=== PATIENT | male | born 2000 | race Caucasian/White ===

== ENCOUNTER 2022-05-24 06:24 | Emergency (ER) | payer OTHER, BC ==
[~2022-05-24] VITALS: Ht 182.9 cm; Wt 79.4 kg
[2022-05-24] MEDS ORDERED: AZIT500T66 PO (07:41)
[2022-05-24] MEDS ORDERED: BENZ100C19 PO (07:41)
[2022-05-24 07:45] VITALS: BP 107/71
== END 2022-05-24 08:04 | disposition home or self-care (01) ==
LOC: ER 06:24
DX: J20.9 Acute bronchitis, unspecified (principal); J02.9 Acute pharyngitis, unspecified
CPT/HCPCS: 71046

== ENCOUNTER 2023-01-03 22:03 | Emergency (ER) | payer BC, OTHER ==
[~2023-01-03] VITALS: Ht 182.9 cm; Wt 81.8 kg
[~2023-01-03 22:03] MED LIST: AZIT500T66 PO; BENZ100C19 PO
[2023-01-04] MEDS ORDERED: IBUPROFEN 800 MG TAB PO ONE (03:15)
[2023-01-04 03:32] VITALS: BP 121/64
== END 2023-01-04 03:34 | disposition home or self-care (01) ==
LOC: ER 22:07
DX: M79.10 Myalgia, unspecified site (principal); R91.1 Solitary pulmonary nodule; F17.210 Nicotine dependence, cigarettes, uncomplicated; V48.6XXA Car passenger injured in noncollision transport accident in traffic accident, initial encounter; Y93.89 Activity, other specified; Y92.89 Other specified places as the place of occurrence of the external cause; Y99.8 Other external cause status
CPT/HCPCS: 70450; 71250; 72125; 74176

== ENCOUNTER 2023-03-08 09:47 | Inpatient (IN) | payer BC, OTHER ==
[~2023-03-08] VITALS: Ht 182.9 cm; Wt 78.9 kg
[2023-03-08 10:25] LABS: Urine Bacteria NONE SEEN /hpf (None Seen); Urine Blood Negative /uL (Negative); Urine Specific Gravity 1.016 (1.001-1.035); Urine WBC <1 /hpf (0 - 3)
[2023-03-08] MEDS ORDERED: SODIUM CHLORIDE 0.9% 1,000 ML IVB ONE (10:30)
[2023-03-08] MEDS ORDERED: MORPHINE SULFATE 4 MG/ML SYR/VIAL IV ONE (10:30)
[2023-03-08] MEDS ORDERED: ONDANSETRON HCL 4 MG/2 ML VIAL IV ONE (10:30)
[2023-03-08 10:44] LABS: Basophils # (auto) 0 10 ^3/uL (0-0.2); Basophils % (auto) 0.6 % (0.0-2.0); Eosinophils # (auto) 0.1 10 ^3/uL (0-0.8); Eosinophils % (auto) 1.7 % (0.0-7.0); Hematocrit 46.8 % (41.0-53.0); Hemoglobin 15.8 g/dL (13.5-17.5); Lymphocytes # (auto) 1.6 10 ^3/uL (0.4-5.4); Lymphocytes % (auto) 25.3 % (10.0-50.0); Mean Corpuscular Hemoglobin 32.3 pg (28.0-32.0); Mean Corpuscular Hgb Conc. 33.9 g/dL (32.0-36.0); Mean Corpuscular Volume 95.5 fL (80.0-100.0); Monocytes # (auto) 0.6 10 ^3/uL (0-1.3); Monocytes % (auto) 9.1 % (0.0-12.0); Neutrophils # (auto) 4.1 10 ^3/uL (1.6-8.6); Neutrophils % (auto) 63.3 % (37.0-80.0); Nucleated Red Blood Cells % 0.1 %; Red Cell Distribution Width 13.4 % (11.8-14.3); White Blood Cell 6.5 10^3/uL (4.4-10.8)
[2023-03-08 10:57] LABS: Calcium 8.9 mg/dL (8.5-10.1); Potassium 4.2 mmol/L (3.5-5.1)
[2023-03-08 11:00] VITALS: PULSE 72; RESP 15; O2SAT 98
[2023-03-08 11:03] LABS: BUN/Creatinine Ratio 9.1 (10.0-20.0); Bilirubin, Total 0.7 mg/dL (0.2-1.0); Total Protein 7.6 g/dL (6.4-8.2)
[2023-03-08] MEDS ORDERED: IOHEXOL 300 MG/ML 100ML BOTTLE IJ ONE (11:23)
[2023-03-08] MEDS ORDERED: PIPERACILLIN-TAZOB 3.375GM 100 ML IV ONE (12:15)
[2023-03-08] MEDS ORDERED: ONDANSETRON HCL 4 MG/2 ML VIAL IV PRN (12:45)
[2023-03-08] MEDS ORDERED: MORPHINE SULFATE INJ 2 MG/ml SYRG IV PRN (12:45)
[2023-03-08] MEDS ORDERED: SODIUM CHLORIDE 0.9% 1,000 ML IV SCH (12:45)
[2023-03-08] MEDS ORDERED: DOCUSATE SOD 100 MG CAP PO PRN (12:45)
[2023-03-08 14:44] LABS: INR 1.01 (0.9-1.15); Partial Thromboplastin Time 27.8 SEC (24.5-34.5)
[2023-03-08 15:08] VITALS: PULSE 76; RESP 16; O2SAT 99
[2023-03-08 17:00] VITALS: BP 107/53; PULSE 64; RESP 20; TEMP 98.1; O2SAT 98
[2023-03-08] MEDS ORDERED: HYDROmorphone HCL 2 MG/ML VL/or syr IV PRN (18:15)
[2023-03-08] MEDS ORDERED: ACETAMINOPHEN 325 MG TAB PO PRN ×2 (19:15→19:30)
[2023-03-08] MEDS ORDERED: D5W/SOD CHLO 0.9% 1,000 ML IV SCH (19:15)
[2023-03-08] MEDS: PIPERACILLIN-TAZOB 3.375GM 100 ML IV SCH (20:07)
[2023-03-08 22:00] VITALS: BP 104/46; PULSE 60; RESP 20; TEMP 98.7; O2SAT 96
[2023-03-09] VITALS (8 sets, daily range): BP systolic 102–118; BP diastolic 57–78; PULSE 57–92; RESP 15–20; TEMP 97.3–98.1; O2SAT 94–98
[2023-03-09] MEDS: PIPERACILLIN-TAZOB 3.375GM 100 ML IV SCH ×5 (01:48→23:03)
[2023-03-09 06:28] LABS: Basophils # (auto) 0.1 10 ^3/uL (0-0.2); Basophils % (auto) 1.1 % (0.0-2.0); Eosinophils # (auto) 0.1 10 ^3/uL (0-0.8); Eosinophils % (auto) 2.1 % (0.0-7.0); Hematocrit 44.5 % (41.0-53.0); Mean Corpuscular Hgb Conc. 33.6 g/dL (32.0-36.0); Mean Corpuscular Volume 95.3 fL (80.0-100.0); Monocytes # (auto) 0.4 10 ^3/uL (0-1.3); Neutrophils # (auto) 2.9 10 ^3/uL (1.6-8.6); Neutrophils % (auto) 52.8 % (37.0-80.0); Nucleated Red Blood Cells % 0.1 %; Red Blood Cells 4.67 10^6/uL (4.5-5.90); White Blood Cell 5.6 10^3/uL (4.4-10.8)
[2023-03-09 06:49] LABS: Albumin 3.3 g/dL (3.4-5.0); Calcium 8.7 mg/dL (8.5-10.1); Potassium 4.1 mmol/L (3.5-5.1)
[2023-03-09 06:52] LABS: BUN/Creatinine Ratio 7.6 (10.0-20.0); Bilirubin, Total 0.6 mg/dL (0.2-1.0); Total Protein 6.2 g/dL (6.4-8.2)
[2023-03-09] MEDS ORDERED: LIDOCAINE 1% HCL (LOCAL ANESTH.) INJ 20ML MDV ONE ×2 (09:33→09:57)
[2023-03-09] MEDS ORDERED: BUPIVACAINE W/ EPINEPH 0.5% INJ 50ML MDV IJ ONE ×2 (09:33→09:58)
[2023-03-09] MEDS ORDERED: BUPIVACAINE 0.25% INJ 50ML VIAL ONE (09:39)
[2023-03-09] MEDS ORDERED: HYDROmorphone HCL 2 MG/ML VL/or syr ONE (09:48)
[2023-03-09] MEDS ORDERED: MIDAZOLAM HCL 2MG/2ML 2ml VIAL (1mg/ml) ONE (09:48)
[2023-03-09] MEDS ORDERED: fentaNYL CITRATE 100 MCG/2 ML VL ONE (09:48)
[2023-03-09] MEDS ORDERED: GLYCOPYRROLATE 0.2 MG/ML 1ML VIAL ONE (09:49)
[2023-03-09] MEDS ORDERED: PROPOFOL 10 MG/ML 20 ML IV ONE (09:49)
[2023-03-09] MEDS ORDERED: DexAMETHasone SOD PHOS 10MG/1ML VIAL INJ ONE (09:49)
[2023-03-09] MEDS ORDERED: ePHEDrine SULFATE 50 MG/ML AMP ONE (09:49)
[2023-03-09] MEDS ORDERED: KETOROLAC TROMETH 30 MG/ML 1ML VIAL ONE (09:49)
[2023-03-09] MEDS ORDERED: LIDOCAINE 2% (LOCAL ANESTH.) PF 5ml SDV ONE (09:49)
[2023-03-09] MEDS ORDERED: ONDANSETRON HCL 4 MG/2 ML VIAL ONE (09:49)
[2023-03-09] MEDS ORDERED: PANTOPRAZOLE 40 MG/10 ML VIAL INJ IV SCH (10:00)
[2023-03-09] MEDS ORDERED: SUGAMMADEX 200mg/2ml Vial (100MG/ML) IV ONE (10:44)
[2023-03-09] MEDS: D5W/SOD CHL 0.45%/KCL 20MEQ 1,000 ML IV SCH ×2 (10:45→19:05)
[2023-03-09] MEDS ORDERED: ONDANSETRON HCL 4 MG/2 ML VIAL IV PRN (11:15)
[2023-03-09] MEDS ORDERED: HYDROmorphone HCL 2 MG/ML VL/or syr IV PRN (11:15)
[2023-03-09] MEDS: metroNIDAZOLE 500MG/100ML 100 ML IV SCH ×3 (13:32→23:03)
[2023-03-09] MEDS: ONDANSETRON HCL 4 MG/2 ML VIAL IV PRN (16:48)
[2023-03-09] MEDS: HYDROmorphone HCL 2 MG/ML VL/or syr IV PRN (16:48)
[2023-03-10] MEDS: ONDANSETRON HCL 4 MG/2 ML VIAL IV PRN (00:24)
[2023-03-10] MEDS: HYDROmorphone HCL 2 MG/ML VL/or syr IV PRN (00:25)
[2023-03-10] MEDS: D5W/SOD CHL 0.45%/KCL 20MEQ 1,000 ML IV SCH ×4 (03:25→20:05)
[2023-03-10 05:00] VITALS: BP 107/54; PULSE 73; RESP 18; TEMP 97.9; O2SAT 96
[2023-03-10] MEDS: PIPERACILLIN-TAZOB 3.375GM 100 ML IV SCH ×4 (05:24→23:37)
[2023-03-10] MEDS: metroNIDAZOLE 500MG/100ML 100 ML IV SCH ×3 (06:36→22:14)
[2023-03-10 08:00] VITALS: BP 116/68; PULSE 70; RESP 20; TEMP 97.9; O2SAT 99
[2023-03-10 08:38] VITALS: BP 116/68; PULSE 70; RESP 20; TEMP 97.9; O2SAT 99
[2023-03-10] MEDS: PANTOPRAZOLE 40 MG/10 ML VIAL INJ IV SCH (11:42)
[2023-03-10 13:02] VITALS: BP 113/65; PULSE 73; RESP 18; TEMP 97.9; O2SAT 98
[2023-03-10 17:08] VITALS: BP 99/57; PULSE 70; RESP 19; TEMP 98; O2SAT 95
[2023-03-10 22:00] VITALS: BP 116/65; PULSE 64; RESP 18; TEMP 97.9; O2SAT 97
[2023-03-11] MEDS: D5W/SOD CHL 0.45%/KCL 20MEQ 1,000 ML IV SCH ×2 (04:25→09:56)
[2023-03-11 05:00] VITALS: BP 107/49; PULSE 64; RESP 17; TEMP 97.6; O2SAT 96
[2023-03-11] MEDS: metroNIDAZOLE 500MG/100ML 100 ML IV SCH (05:28)
[2023-03-11] MEDS: PIPERACILLIN-TAZOB 3.375GM 100 ML IV SCH ×2 (06:43→10:40)
[2023-03-11 09:02] VITALS: BP 104/61; PULSE 67; RESP 20; TEMP 97.5; O2SAT 99
[2023-03-11] MEDS: PANTOPRAZOLE 40 MG/10 ML VIAL INJ IV SCH (10:40)
[2023-03-11] MEDS ORDERED: MET500T PO (11:39)
[2023-03-11] MEDS ORDERED: CIPR-173 PO (11:39)
== END 2023-03-11 13:03 | disposition home or self-care (01) | DRG 343 ==
LOC: ER 09:47 → OVERFLOW 12:42 → WEST WING 14:10
PROVIDERS: ADMIT Internal Medicine; ATTEND Internal Medicine
PROC: 0DTJ4ZZ Resection of Appendix, Percutaneous Endoscopic Approach (ICD-10-PCS; principal; 2023-03-09 10:04)
DX: K35.30 Acute appendicitis with localized peritonitis, without perforation or gangrene (principal); F17.200 Nicotine dependence, unspecified, uncomplicated
CPT/HCPCS: 36415; 71045; 74177; 80053; 81001; 83690; 85025; 85610; 85730; 86850; 86900; 86901; C9113; G0378; J1100; J1885; J2001; J2250; J2405; J2543; J2704; J3490; J7042

== ENCOUNTER 2023-12-15 04:10 | Emergency (ER) | payer BC, OTHER ==
[~2023-12-15] VITALS: Ht 182.9 cm; Wt 87.8 kg
[~2023-12-15 04:10] MED LIST changes: -AZIT500T66 PO; -BENZ100C19 PO; +CIPR-173 PO; +MET500T PO
[2023-12-15 04:20] VITALS: BP 122/81; PULSE 73; RESP 18; TEMP 97.8; O2SAT 98
[2023-12-15 04:58] LABS: Urine Bacteria None Seen /hpf (None Seen)
[2023-12-15 05:03] LABS: Urine Blood Negative /uL (Negative); Urine Clarity Clear (Clear); Urine Color Yellow (Yellow); Urine Protein, UAD Negative (Negative); Urine Specific Gravity 1.021 (1.001-1.035); Urine Urobilinogen Normal (Negative); Urine WBC 37 /hpf (0 - 3); Urine pH 5.5 (5.0-9.0)
[2023-12-15] MEDS ORDERED: ERY05OO OP (05:12)
[2023-12-15] MEDS ORDERED: FLUORESCEIN SOD OPTH TEST STRIP EACHEYE ONE (05:15)
[2023-12-15] MEDS ORDERED: TETRACAINE HCL 0.5% OPTH(EYE) SOLN 4ML EACHEYE ONE (05:15)
[2023-12-15] MEDS: ERYTHROMY OPTH OINT 5mg/gm 1gm or 3.5gm tube OP ONE (05:42)
== END 2023-12-15 05:45 | disposition home or self-care (01) ==
LOC: ER 04:10
DX: H10.89 Other conjunctivitis (principal); Z87.891 Personal history of nicotine dependence; Z79.899 Other long term (current) drug therapy
CPT/HCPCS: 81001

== ENCOUNTER 2024-03-23 17:18 | Emergency (ER) | payer BC, OTHER ==
[~2024-03-23] VITALS: Ht 182.9 cm; Wt 86.7 kg
[~2024-03-23 17:18] MED LIST changes: +ERY05OO OP
[2024-03-23 18:00] LABS: Basophils # (auto) 0.1 10 ^3/uL (0-0.2); Basophils % (auto) 0.6 % (0.0-2.0); Eosinophils # (auto) 0.1 10 ^3/uL (0-0.8); Eosinophils % (auto) 0.6 % (0.0-7.0); Hematocrit 48.9 % (41.0-53.0); Hemoglobin 16.5 g/dL (13.5-17.5); Lymphocytes # (auto) 2.7 10 ^3/uL (0.4-5.4); Lymphocytes % (auto) 26.3 % (10.0-50.0); Mean Corpuscular Hgb Conc. 33.8 g/dL (32.0-36.0); Mean Corpuscular Volume 94.6 fL (80.0-100.0); Monocytes % (auto) 9.3 % (0.0-12.0); Neutrophils # (auto) 6.6 10 ^3/uL (1.6-8.6); Neutrophils % (auto) 63.2 % (37.0-80.0); Nucleated Red Blood Cells % 0.1 %; Red Blood Cells 5.17 10^6/uL (4.5-5.90); Red Cell Distribution Width 12.7 % (11.8-14.3); White Blood Cell 10.4 10^3/uL (4.4-10.8)
[2024-03-23 18:17] LABS: Alanine Aminotransferase 33 U/L (7-40); Albumin 5.2 g/dL (3.2-4.8); Alkaline Phosphatase 71 U/L (46-116); Anion Gap 5 (5-15); Aspartate Aminotransferase 18 U/L (13-40); BUN/Creatinine Ratio 10.2 (10.0-20.0); Bilirubin, Total 0.6 mg/dL (0.2-1.0); Blood Urea Nitrogen 12 mg/dL (9-23); Calcium 10.6 mg/dL (8.7-10.4); Carbon Dioxide 31 mmol/L (20-30); Chloride 105 mmol/L (98-107); Glucose 83 mg/dL (74-106); Sodium 141 mmol/L (136-145); Total Protein 7.6 g/dL (5.7-8.2)
[2024-03-23 18:50] LABS: Urine Bacteria None Seen /hpf (None Seen)
[2024-03-23 19:17] LABS: Urine Blood Negative /uL (Negative); Urine Clarity Clear (Clear); Urine Color Yellow (Yellow); Urine Mucus FEW (None Seen); Urine Protein, UAD Negative (Negative); Urine Specific Gravity 1.023 (1.001-1.035); Urine Urobilinogen Normal (Negative); Urine WBC 1 /hpf (0 - 3); Urine pH 5.5 (5.0-9.0)
[2024-03-23] MEDS: IOHEXOL 350 MG/ML 100ML IJ ONE (20:31)
[2024-03-23 23:56] VITALS: BP 108/76; PULSE 65; RESP 16; TEMP 98; O2SAT 96
== END 2024-03-24 00:03 | disposition home or self-care (01) ==
LOC: ER 17:18
DX: R07.89 Other chest pain (principal); Z79.899 Other long term (current) drug therapy
CPT/HCPCS: 36415; 71275; 80053; 81001; 84484; 85025; 99284; Q9967